=== PATIENT | female | born 1995 | race Caucasian/White ===

== ENCOUNTER → 2020-11-25 | Outpatient (CLI) | payer OTHER ==
[~2020-11-25] MED LIST: COLACE100 MG PO; FLINTSTONES1 EAC1 PO; HYDROCODON-ACE1 EAC4 PO; IBUPROFEN800 MG PO; PHENERGAN 25 MG25 M1 PO; TRANDATE 100 M100 MG PO; TRANDATE 200 M200 MG PO; TUMS200 MG PO
== END ==
LOC: GENOP 13:35
DX: O26.893 Other specified pregnancy related conditions, third trimester (principal); Z3A.35 35 weeks gestation of pregnancy; R10.9 Unspecified abdominal pain; M54.9 Dorsalgia, unspecified
CPT/HCPCS: 81001; G0463

== ENCOUNTER 2020-11-28 11:51 | Observation (INO) | payer OTHER ==
[2020-11-28 14:06] LABS: HEMOGLOBIN 11.6 gm/dl (12.3-15.3); RED BLOOD COUNT 3.51 M/UL (4.00-5.10); WHITE BLOOD COUNT 15.8 K/UL (4.5-11.0)
[2020-11-28 14:25] LABS: BUN/CREATININE RATIO 12 (0-10)
[2020-11-29 06:26] LABS: HEMOGLOBIN 10.3 gm/dl (12.3-15.3); WHITE BLOOD COUNT 13.1 K/UL (4.5-11.0)
[2020-11-29 06:45] LABS: RED BLOOD COUNT 3.13 M/UL (4.00-5.10)
[2020-11-29 06:50] LABS: BUN/CREATININE RATIO 10 (0-10)
[2020-11-29] MEDS ORDERED: TRANDATE 200 M200 MG PO (09:33)
[2020-11-29 12:57] LABS: URINE TOTAL PROTEIN 26 mg/dl
== END 2020-11-29 14:21 | disposition home or self-care (01) ==
LOC: GENOP 11:51 → OB 15:51
PROVIDERS: ADMIT Obstetrics & Gynecology
DX: O60.03 Preterm labor without delivery, third trimester (principal); O24.419 Gestational diabetes mellitus in pregnancy, unspecified control; O99.333 Smoking (tobacco) complicating pregnancy, third trimester; O99.343 Other mental disorders complicating pregnancy, third trimester; Z3A.34 34 weeks gestation of pregnancy
CPT/HCPCS: 36415; 59025; 80053; 81001; 82570; 83615; 84156; 84550; 85025; 96360; 96367; 96372; 96374; 96375; C9113; G0378; J0702; J2405; J7120

== ENCOUNTER 2020-12-12 16:32 | Inpatient (IN) | payer OTHER ==
[~2020-12-12] VITALS: Ht 162.6 cm; Wt 56.2 kg
[~2020-12-12 16:32] MED LIST changes: -COLACE100 MG PO; -FLINTSTONES1 EAC1 PO; -HYDROCODON-ACE1 EAC4 PO; -IBUPROFEN800 MG PO; -PHENERGAN 25 MG25 M1 PO; -TRANDATE 100 M100 MG PO; -TUMS200 MG PO
[2020-12-12 17:35] LABS: HEMOGLOBIN 11.3 gm/dl (12.3-15.3); RED BLOOD COUNT 3.35 M/UL (4.00-5.10); WHITE BLOOD COUNT 12.4 K/UL (4.5-11.0)
[2020-12-12] MEDS ORDERED: FLINTSTONES1 EAC1 PO (17:36)
[2020-12-12] MEDS ORDERED: TRANDATE 100 M100 MG PO (17:36)
[2020-12-12] MEDS ORDERED: PHENERGAN 25 MG25 M1 PO (17:37)
[2020-12-12] MEDS ORDERED: TUMS200 MG PO (17:38)
[2020-12-14 04:33] LABS: HEMOGLOBIN 10.7 gm/dl (12.3-15.3)
[2020-12-15] MEDS ORDERED: IBUPROFEN800 MG PO (10:01)
[2020-12-15] MEDS ORDERED: HYDROCODON-ACE1 EAC4 PO (10:01)
[2020-12-15] MEDS ORDERED: COLACE100 MG PO (10:01)
== END 2020-12-15 13:51 | disposition home or self-care (01) | DRG 788 ==
LOC: GENOP 16:32 → OB 17:29
PROVIDERS: Obstetrics & Gynecology; ADMIT Obstetrics & Gynecology
PROC: 0U7C7ZZ Dilation of Cervix, Via Natural or Artificial Opening (ICD-10-PCS; 2020-12-12)
PROC: 4A1HXCZ Monitoring of Products of Conception, Cardiac Rate, External Approach (ICD-10-PCS; 2020-12-12)
PROC: 10907ZC Drainage of Amniotic Fluid, Therapeutic from Products of Conception, Via Natural or Artificial Opening (ICD-10-PCS; 2020-12-13)
PROC: 3E033VJ Introduction of Other Hormone into Peripheral Vein, Percutaneous Approach (ICD-10-PCS; 2020-12-13)
PROC: 10D00Z1 Extraction of Products of Conception, Low, Open Approach (ICD-10-PCS; principal; 2020-12-13 13:04)
DX: O76 Abnormality in fetal heart rate and rhythm complicating labor and delivery (principal); O11.4 Pre-existing hypertension with pre-eclampsia, complicating childbirth; Z37.0 Single live birth; Z3A.37 37 weeks gestation of pregnancy; Z20.822 Contact with and (suspected) exposure to COVID-19
CPT/HCPCS: 36415; 81001; 82800; 83735; 85014; 85018; 85025; 90471; 90715; C9113; J0610; J1170; J1580; J2250; J2274; J2370; J2405; J2590; J3475; J7120; U0003

== ENCOUNTER 2021-06-12 14:48 | Emergency (ER) | payer OTHER ==
[~2021-06-12 14:48] MED LIST changes: +COLACE100 MG PO; +FLINTSTONES1 EAC1 PO; +HYDROCODON-ACE1 EAC4 PO; +IBUPROFEN800 MG PO; +PHENERGAN 25 MG25 M1 PO; +TRANDATE 100 M100 MG PO; +TUMS200 MG PO
[2021-06-12 15:10] LABS: RED BLOOD COUNT 4.64 M/UL (4.00-5.10); WHITE BLOOD COUNT 12.2 K/UL (4.5-11.0)
[2021-06-12 15:32] LABS: BUN/CREATININE RATIO 25 (0-10)
[2021-06-12] MEDS ORDERED: LEVOFLOXACIN500 MG PO (19:16)
[2021-06-12] MEDS ORDERED: FLOMAX0.4 MG PO (19:16)
[2021-06-12] MEDS ORDERED: IBUPROFEN600 MG PO (19:16)
[2021-06-12] MEDS ORDERED: HYDROCODON-ACE1 EAC4 PO (19:16)
== END 2021-06-12 21:04 | disposition home or self-care (01) ==
LOC: ER1 14:48
PROVIDERS: Emergency Medicine
DX: N13.2 Hydronephrosis with renal and ureteral calculous obstruction (principal); F17.290 Nicotine dependence, other tobacco product, uncomplicated
CPT/HCPCS: 80053; 81001; 83690; 84703; 85025; 96365; 96375; 99284; J1885; J1956; J2405